=== PATIENT | female | born 1960 | race Caucasian/White ===

== ENCOUNTER 2024-05-09 11:44 | Emergency (ER) | payer OTHER ==
--- NOTE | 2024-05-09 12:15 | ED ---
Extremity Problem HPI - General Source: patient, RN notes reviewed Mode of arrival: wheelchair Limitations: no limitations - History of Present Illness MD Complaint: extremity pain Onset/Timin -: days(s) Location: bilateral lower extremity <Jamie Wu - Last Filed: 05/09/24 12:13> - General Source: patient, RN notes reviewed, old records reviewed <Garrett Youssef - Last Filed: 05/09/24 16:37> - General Chief complaint: Extremity Problem,Nontraumatic Stated complaint: Lower Extrem Pain Time Seen by Provider: 05/09/24 12:02 - History of Present Illness Initial comments: Quick note: This is a 63-year-old female with history of COPD presenting with bilateral lower extremity pain ("1510") x 3 days. Patient states she was hospitalized last week and remained bedbound for over 24 hours due to COPD exacerbation. Patient states she was ambulating well until pain started suddenly without known cause or recent trauma. States pain starts at superior thigh radiates to mid calf. Denies leg swelling or color change. Denies dyspnea or pain with inspiration. Denies history of blood clots. (Jamie Wu) Patient is a 63-year-old female who presents emergency department complaining of bilateral leg pain since recent hospital admission. Was admitted last week and has been complaining of bilateral anterior leg pain ranging from right thigh to just below her knee. Seems to be the quadriceps and patellar tendons. States it is painful when standing. 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 States this exacerbates the issue. Denies any saddle paresthesias. Denies any urinary or bowel incontinence or retention. Denies any lower extremity paralysis. No other acute complaints at this time, denying chest pain or shortness of breath. Presents for further evaluation. Has a history remarkable for COPD and emphysema. No history of long distance travel. No history of blood clots. Originally seen as a quick note. I evaluated patient when she was placed in room 3. (Garrett Youssef) - Related Data Previous Rx's Medication Instructions Recorded HYDROcodone/APAP 5-325MG [Huntington 1 tab PO Q6HR PRN 3 Days #12 tab 05/09/24 5-325] Allergies Allergy/AdvReac Type Severity Reaction Status Date / Time aspirin AdvReac Nausea & Verified 05/09/24 11:58 Vomiting Review of Systems ROS Other: All systems not noted in ROS Statement are negative. <BryceJamie - Last Filed: 05/09/24 12:13> ROS Other: All systems not noted in ROS Statement are negative. <Garrett Youssef - Last Filed: 05/09/24 16:37> ROS Statement: Those systems with pertinent positive or pertinent negative responses have been documented in the HPI. Review of Systems: CONST: Denies fever EYES: Denies blurry vision ENT: Denies nasal congestion C/V: Denies Chest pain RESP: Denies shortness of breath GI: Denies abdominal pain : Denies dysuria SKIN: Denies rash. MSK: Endorses leg pain, bilateral NEURO: Denies headache (Garrett Youssef) Past Medical History Past Medical History: COPD History of Any Multi-Drug Resistant Organisms: None Reported Past Surgical History: Cholecystectomy Additional Past Surgical History / Comment(s): gastric bypass, carpal tunnel. right femur bone tumor removed 1974 Past Psychological History: Anxiety Smoking Status: Former smoker Past Alcohol Use History: Daily Past Drug Use History: None Reported <BryceJamie - Last Filed: 05/09/24 12:13> General Exam <BryceJamie - Last Filed: 05/09/24 12:13> <Garrett Youssef - Last Filed: 05/09/24 16:37> - General Exam Comments Initial Comments: Visual Physical Exam Vital signs reviewed General: Well-appearing, nontoxic, no acute distress. Patient seated in wheelchair Head: Normocephalic, atraumatic Eyes: PERRLA, EOMI ENT: Airway patent Chest: Nonlabored breathing Skin: No visual rash, normal skin tone Neuro: Alert and oriented 3 Musculoskeletal: No gross abnormalities (Jamie Wu) General: Appears in no acute distress. HEAD: Normal with no signs of head trauma. EYES: EOMI ENT: Hearing grossly intact, normal oropharynx. RESPIRATORY: Clear breath sounds bilaterally. No wheezes, rales, or rhonchi. No respiratory distress or hypoxia C/V: Regular rate and rhythm. S1 and S2 auscultated, no edema, peripheral pulses 2+ and intact throughout ABD: Abd is soft, nontender, nondistended EXT: Normal range of motion, no obvious deformity. Tenderness to palpation over the quadriceps tendons as well as patellar tendons. Also some tenderness in the popliteal space as well as posterior hamstrings of both legs. No obvious deformities or injuries. Normal range of motion. SKIN: No rashes or lesions observed on exposed skin. NEURO: Alert and oriented x 4. Neurovasc intact throughout. (Garrett Youssef) Course Vital Signs 05/09/24 05/09/24 05/09/24 11:52 13:37 14:26 Temperature 99.1 F 98.7 F Pulse Rate 81 78 84 Respiratory 18 16 18 Rate Blood Pressure 148/76 124/89 113/66 O2 Sat by Pulse 97 94 L 94 L Oximetry Medical Decision Making <Jamie Wu - Last Filed: 05/09/24 12:13> - Lab Data Result diagrams: 05/09/24 13:00 05/09/24 13:00 <Garrett Youssef - Last Filed: 05/09/24 16:37> - Medical Decision Making I completed the quick note portion of this chart signed GISELLE Sandoval (Jamie Wu) Was pt. sent in by a medical professional or institution ([facility], [employer], urgent care, hospital, or custodial...) When possible be specific @ -No Did you speak to anyone other than the patient for history (EMS, parent, family, police, friend...)? What history was obtained from this source @ -No Did you review nursing and triage notes (agree or disagree)? Why? @ -I reviewed and agree with nursing and triage notes Were old charts reviewed (outside hosp., previous admission, EMS record, old EKG, old radiological studies, urgent care reports/EKG's, custodial records)? Report findings @ -No old charts were reviewed Differential Diagnosis (chest pain, altered mental status, abdominal pain women, abdominal pain men, vaginal bleeding, weakness, fever, dyspnea, syncope, headache, dizziness, GI bleed, back pain, seizure, CVA, palpatations, mental health, musculoskeletal)? @ -Differential Musculoskeletal Muscular strain, contusion, ligament sprain, fracture, arthritis, septic arthritis, bursitis, cellulitis, muscle spasm, nerve compression, DVT, arterial occlusion, herpes zoster, electrolyte abnormality, tumor.... This is not meant to be in all inclusive list EKG interpreted by me (3pts min.). @ -None done X-rays interpreted by me (1pt min.). @ -None done CT interpreted by me (1pt min.). @ -None done U/S interpreted by me (1pt. min.). @ -Venous duplex ultrasound negative for DVT bilaterally. What testing was considered but not performed or refused? (CT, X-rays, U/S, labs)? Why? @ -None What meds were considered but not given or refused? Why? @ -None Did you discuss the management of the patient with other professionals (professionals i.e. , PA, [employer], lab, RT, psych nurse, social media editor, general contractor, teacher, enforcement officer, case management director)? Give summary @ -No Was smoking cessation discussed for >3mins.? @ -No Was critical care preformed (if so, how long)? @ -No Were there social determinants of health that impacted care today? How? (Homelessness, low income, unemployed, alcoholism, drug addiction, transportation, low edu. Level, literacy, decrease access to med. care, long-term, rehab)? @ -No Was there de-escalation of care discussed even if they declined (Discuss DNR or withdrawal of care, Hospice)? DNR status @ -No What co-morbidities impacted this encounter? (DM, HTN, Smoking, COPD, CAD, Cancer, CVA, ARF, Chemo, Hep., AIDS, mental health diagnosis, sleep apnea, morbid obesity)? @ -None Was patient admitted / discharged? Hospital course, mention meds given and route, prescriptions, significant lab abnormalities, going to OR and other pertinent info. @ -Based on the patient's presentation and physical exam, presents emergency department complaining of bilateral leg pain in the setting of recent hospital discharge last week. Seems to be more musculoskeletal but we will obtain venous duplex ultrasound right for DVT. Will also obtain basic labs to evaluate for muscle breakdown or electrolyte abnormalities. Patient be administered a 1 L fluid bolus, IV Toradol as well as a Huntington. Patient was in agreement this plan. Vitals within acceptable limits. Laboratory studies are within acceptable limits. Venous duplex ultrasound negative for DVT bilaterally. On reevaluation I discussed the workup with the patient. Patient will be discharged home with orthopedics follow-up. Likely muscle strains or possible deconditioning at this time. Patient be given a work note as well as a short- term prescription of Huntington 5. Strict return precautions discussed. No concern for cauda equina syndrome at this time as she has no red flag symptoms. She was in agreement this plan. I instructed the patient to follow up with their PCP in the next 1-3 days. I explained that the patient should return to the emergency department if they experience any worsening symptoms. Strict return precautions were discussed with the patient. The patient expressed understanding of these instructions. I answered all questions that the patient had. The patient was discharged home in good condition with their prescriptions and follow up information. Undiagnosed new problem with uncertain prognosis? @ -No Drug Therapy requiring intensive monitoring for toxicity (Heparin, Nitro, Insulin, Cardizem)? @ -No Were any procedures done? @ -No Diagnosis/symptom? @ -Myalgias, muscle strain Acute, or Chronic, or Acute on Chronic? @ -Acute Uncomplicated (without systemic symptoms) or Complicated (systemic symptoms)? @ -Uncomplicated Side effects of treatment? @ -No Exacerbation, Progression, or Severe Exacerbation? @ -No Poses a threat to life or bodily function? How? (Chest pain, USA, MS, pneumonia, PE, COPD, DKA, ARF, appy, cholecystitis, CVA, Diverticulitis, Homicidal, Suicidal, threat to staff... and all critical care pts) @ -Unlikely at this time (Garrett Youssef) - Lab Data Lab Results 05/09/24 05/09/24 Range/Units 13:00 13:00 WBC 11.1 H (3.8-10.6) k/uL RBC 3.72 L (3.80-5.40) m/uL Hgb 11.1 L (11.4-16.0) gm/dL Hct 34.9 (34.0-46.0) % MCV 94.0 (80.0-100.0) fL MCH 29.8 (25.0-35.0) pg MCHC 31.8 (31.0-37.0) g/dL RDW 15.2 (11.5-15.5) % Plt Count 322 (150-450) k/uL MPV 8.6 Neutrophils % 73 % Lymphocytes % 18 % Monocytes % 5 % Eosinophils % 2 % Basophils % 0 % Neutrophils # 8.1 H (1.3-7.7) k/uL Lymphocytes # 2.0 (1.0-4.8) k/uL Monocytes # 0.5 (0-1.0) k/uL Eosinophils # 0.2 (0-0.7) k/uL Basophils # 0.0 (0-0.2) k/uL Sodium 135 L (137-145) mmol/L Potassium 4.6 (3.5-5.1) mmol/L Chloride 99 (98-107) mmol/L Carbon Dioxide 28 (22-30) mmol/L Anion Gap 8 mmol/L BUN 17 (7-17) mg/dL Creatinine 1.36 H (0.52-1.04) mg/dL Est GFR (CKD-EPI)AfAm 48 (>60 ml/min/1.73 sqM) Est GFR (CKD-EPI)NonAf 41 (>60 ml/min/1.73 sqM) Glucose 96 (74-99) mg/dL Calcium 9.6 (8.4-10.2) mg/dL Magnesium 2.1 (1.6-2.3) mg/dL Total Bilirubin 0.4 (0.2-1.3) mg/dL AST 26 (14-36) U/L ALT 24 (4-34) U/L Alkaline Phosphatase 106 (38-126) U/L Creatine Kinase 46 (30-135) U/L Total Protein 6.2 L (6.3-8.2) g/dL Albumin 3.8 (3.5-5.0) g/dL Disposition <Jamie Wu - Last Filed: 05/09/24 12:13> Is patient prescribed a controlled substance at d/c from ED?: Yes When asked, does pt state using other controlled substances?: Yes If prescribed controlled substance>3 days was MAPS reviewed?: Prescribed <3 Days If opioid is for acute pain is fill amount 7 days or less?: Yes If Rx opioid, was Start Talking consent form obtained?: Yes Time of Disposition: 14:10 <Garrett Youssef - Last Filed: 05/09/24 16:37> Clinical Impression: Myalgia, Muscle strain Disposition: HOME SELF-CARE Condition: Good Instructions (If sedation given, give patient instructions): Musculoskeletal Pain (ED) Additional Instructions: Rest, follow-up with your PCP in the next 1 to 3 days if symptoms persist. Follow-up with orthopedics in the next 1 to 3 days if symptoms persist. Use analgesia medications as needed. Return if worsening symptoms. Prescriptions: HYDROcodone/APAP 5-325MG [H[place]ton 5-325] 1 tab PO Q6HR PRN 3 Days #12 tab PRN Reason: Pain Referrals: None,Stated [Primary Care Provider] - 1-2 days Lew Yadav MD [STAFF PHYSICIAN] - 1-2 days
[2024-05-09 13:24] LABS: Basophils % (A) 0 %; Eosinophils # (A) 0.2 k/uL (0-0.7); Eosinophils % (A) 2 %; HCT 34.9 % (34.0-46.0); HGB 11.1 gm/dL (11.4-16.0); Lymphocytes % (A) 18 %; MCH 29.8 pg (25.0-35.0); MCHC 31.8 g/dL (31.0-37.0); Mean Platelet Volume 8.6; Monocytes # (A) 0.5 k/uL (0-1.0); Monocytes % (A) 5 %; Neutrophils # (A) 8.1 k/uL (1.3-7.7); Neutrophils % (A) 73 %; Platelet Count 322 k/uL (150-450); RBC 3.72 m/uL (3.80-5.40); RDW 15.2 % (11.5-15.5); WBC 11.1 k/uL (3.8-10.6)
[2024-05-09] MEDS: SODIUM CHLORIDE 0.9% 1,000 ML IV STA (13:30)
[2024-05-09] MEDS: HYDROcodone/APAP 5-325MG 1 EACH TAB PO STA (13:32)
[2024-05-09 13:35] LABS: ALT 24 U/L (4-34); AST 26 U/L (14-36); African American GFR (CKD) 48 (>60 ml/min/1.73 sqM); Albumin 3.8 g/dL (3.5-5.0); Alkaline Phosphatase 106 U/L (38-126); Anion Gap 8 mmol/L; Blood Urea Nitrogen 17 mg/dL (7-17); Calcium 9.6 mg/dL (8.4-10.2); Carbon Dioxide 28 mmol/L (22-30); Chloride 99 mmol/L (98-107); Creatine Kinase 46 U/L (30-135); Glucose 96 mg/dL (74-99); Magnesium 2.1 mg/dL (1.6-2.3); Non-African American GFR(CKD) 41 (>60 ml/min/1.73 sqM); Potassium 4.6 mmol/L (3.5-5.1); Sodium 135 mmol/L (137-145); Total Bilirubin 0.4 mg/dL (0.2-1.3); Total Protein 6.2 g/dL (6.3-8.2)
[2024-05-09] MEDS: KETOROLAC 15 MG/ML 1 ML VIAL IVP STA (13:35)
--- NOTE | 2024-05-09 13:49 | US ---
EXAMINATION TYPE: US venous doppler duplex LE BI DATE OF EXAM: 05/09/2024 1:41 PM COMPARISON: NONE CLINICAL INDICATION: Female, 63 years old with history of pain; Pain and weakness bilateral legs, wor se on the right, Pain TECHNIQUE: The lower extremity deep venous system is examined utilizing real time linear array sonog hillary with graded compression, color doppler sonography, and spectral doppler. SIDE PERFORMED: bilateral FINDINGS: VESSELS IMAGED: Common Femoral Vein Deep Femoral Vein Greater Saphenous Vein * Femoral Vein Popliteal Vein Small Saphenous Vein * Proximal Calf Veins (* superficial vessels) Right Leg: No evidence of DVT, Color Doppler imaging shows patency of the vessels. Spectral waveform s are within normal limits. Left Leg: No evidence of DVT, Color Doppler imaging shows patency of the vessels. Spectral waveforms are within normal limits. IMPRESSION: No ultrasound evidence for deep venous thrombosis. [facility], Workstation: [facility], 05/09/2024 1:47 PM
[2024-05-09 14:26] VITALS: BP 113/66; PULSE 84; RESP 18; TEMP 98.7
== END 2024-05-09 14:27 | disposition home or self-care (01) ==
LOC: EC 11:44
DX: S86.811A Strain of other muscle(s) and tendon(s) at lower leg level, right leg, initial encounter (principal); S86.812A Strain of other muscle(s) and tendon(s) at lower leg level, left leg, initial encounter; Z87.891 Personal history of nicotine dependence; Z88.6 Allergy status to analgesic agent; X58.XXXA Exposure to other specified factors, initial encounter
CPT/HCPCS: 36415; 80053; 82550; 83735; 85025; 93970; 99284; 96374; 96361; J1885